=== PATIENT | male | born 1985 | race Caucasian/White ===

== ENCOUNTER 2016-10-13 01:50 | Emergency (ER) | payer OTHER ==
[~2016-10-13] VITALS: Ht 167.6 cm; Wt 81.7 kg
[~2016-10-13 01:50] MED LIST: CATAPRES0.1 MG PO; CELEXA 20 MG TA20 MG PO; CHLORDIAZEPOXID10 MG PO; CHLORDIAZEPOXID25 M1 PO; LOPRESSOR50; NEURONTIN 300300 M1 PO; VITAMIN B-1100 M2 PO
[2016-10-13] MEDS ORDERED: LOPRESSOR25 PO (01:54)
[2016-10-13 02:15] LABS: ABSOLUTE NEUTROPHILS 4.8 thou/uL (1.4-8.2); BASOPHILS 0.3 % (0.0-2.0); EOSINOPHILS 0.4 % (0.0-3.0); HEMATOCRIT 46.6 % (42.0-52.0); HEMOGLOBIN 16.2 gm/dL (14.0-18.0); LYMPHOCYTES 17.2 % (24.0-44.0); MCH 30.7 pg (26.0-34.0); MCHC 34.9 g/dL (28.0-37.0); MCV 87.9 fL (80.0-100.0); MONOCYTES 8.2 % (1.0-8.0); PLATELET COUNT 78 thou/uL (150-400); POLYS 73.9 % (36.0-66.0); RDW 13.3 % (10.5-14.5); WBC 6.4 thou/uL (4.0-11.0)
[2016-10-13 02:22] LABS: MANUAL DIFF NO
[2016-10-13 02:28] LABS: CALCIUM 8.1 mg/dL (8.5-10.1); CREATININE 0.7 mg/dL (0.7-1.3)
[2016-10-13 02:34] LABS: DIRECT BILIRUBIN 0.7 mg/dL (<0.1-0.3); TOTAL BILIRUBIN 1.5 mg/dL (<0.1-1.0); TOTAL PROTEIN 7.2 g/dL (6.4-8.2)
== END 2016-10-13 04:00 | disposition home or self-care (01) ==
LOC: ER 01:50
PROVIDERS: Emergency Medicine
DX: F10.129 Alcohol abuse with intoxication, unspecified (principal); E87.6 Hypokalemia; R00.2 Palpitations; R94.5 Abnormal results of liver function studies; F17.210 Nicotine dependence, cigarettes, uncomplicated